=== PATIENT | female | born 1980 | race Caucasian/White ===

== ENCOUNTER → 2018-03-25 | Outpatient (REF) ==
--- NOTE | 2018-03-25 18:28 | REP ---
Nickel: Pain and disability. Technique: AP, lateral, coned-down views of the lumbosacral spine. Findings: Mild degenerative changes include subtle endplate sclerosis and minimal disc space narrowing at L5-S1 and L4-5. Otherwise age appropriate examination. No acute fracture / compression injury or subluxation. Impression: Mild degenerative changes suggested at L4-5 and L5-S1. Electronically Signed by Yung Munoz MD 03/25/2018 06:20 P
--- NOTE | 2018-03-25 18:29 | REP ---
Clinical: Right foot pain Technique: AP, lateral, bilateral oblique views right foot . Findings: The osseous structures and joint spaces are intact and normal for age. There is no evidence for acute fracture or dislocation. Surrounding soft tissues are unremarkable. No subcutaneous emphysema or radiodense foreign body. Impression: Age-appropriate right foot radiographs. No acute fracture or dislocation. Electronically Signed by Yung Munoz MD 03/25/2018 06:21 P
== END ==
LOC: M SMT 09:41
PROVIDERS: ATTEND Internal Medicine
DX: Z00.00 Encounter for general adult medical examination without abnormal findings (principal)